=== PATIENT | male | born 1960 | race American Indian/Alaskan Native ===

== ENCOUNTER 2016-08-12 00:17 | Observation (INO) | payer MEDICAID ==
[2016-08-12 00:20] VITALS: BMI 30.8
[2016-08-12 00:34] VITALS: RESP 16
--- NOTE | 2016-08-12 00:47 | ED PDOC ---
Arrival/HPI - General Historian: Patient EM Caveat: Intoxicated - History of Present Illness Symptom Onset: Gradual Symptom Course: Improving <Leticia Liu - Last Filed: 08/12/16 03:50> <Chavez Davis - Last Filed: 08/12/16 07:01> - General Chief Complaint: Alcohol Ingestion Time Seen by Provider: 08/12/16 00:23 - History of Present Illness Narrative History of Present Illness (Text): 08/12/16 00:38 55 M with PMHx of HTN, HIV, and substance abuse presents to the [facility] ED via EMS for EtOH intoxication. Pt was awake and answering questions. He stated "I drank a lot". Pt has a history of multiple visits to the [facility] ED for similar episodes of intoxication. Pt denied any trauma, and denied any acute complaints at this time. Pt denied suicidal or homicidal ideation. He stated he did not take his home HTN medications today. He denied fever, chills, sob, chest pains, abdominal pains, n/v/d/c or urinary symptoms. (Leticia Liu) Past Medical History - Infectious Disease Hx of Infectious Diseases: None - Tetanus Immunization Tetanus Immunization: Unknown - Cardiac Hx Hypertension: Yes - Pulmonary Hx Tuberculosis: No - Neurological HX Cerebrovascular Accident: No - Hematological/Oncological Hx Cancer: No - Musculoskeletal/Rheumatological Hx Falls: No - Psychiatric Hx Substance Use: No - Anesthesia Hx Anesthesia: No - Suicidal Assessment Feels Threatened In Home Enviroment: No <Leticia Liu - Last Filed: 08/12/16 03:50> Family/Social History Family/Social History: No Known Family HX Smoking Status: Current Some Days Smoker Hx Alcohol Use: Yes Hx Substance Use: No <Leticia Liu - Last Filed: 08/12/16 03:50> Allergies/Home Meds <Leticia Liu - Last Filed: 08/12/16 03:50> <Chavez Davis - Last Filed: 08/12/16 07:01> Allergies/Adverse Reactions: Allergies No Known Allergies Allergy (Verified 02/01/16 21:52) Home Medications: Home Meds Medication Instructions Recorded Confirmed Emtricitab/Rilpivirine/Tenofov 1 each PO DAILY 11/24/15 08/12/16 [Complera Tablet] Metoprolol Succinate 50 mg PO DAILY 11/24/15 08/12/16 Valsartan/Hydrochlorothiazide 1 tab PO DAILY 11/24/15 08/12/16 [Valsartan and Hydrochlorothiazide 25 mg-160 M] Hydralazine HCl [Hydralazine HCl] 100 mg PO Q12H 08/12/16 08/12/16 Review of Systems - Review of Systems Systems not reviewed;Unavailable: Intoxicated <Leticia Liu - Last Filed: 08/12/16 03:50> Physical Exam - Physical Exam Physical Exam Limitations: Intoxication Vital Signs Reviewed: Yes Temperature: Afebrile Blood Pressure: Normal Pulse: Regular Respiratory Rate: Normal Appearance: Positive for: Non-Toxic, Comfortable Pain Distress: None - Systems Exam Head: Present: Atraumatic, Normocephalic Pupils: Present: PERRL Extroacular Muscles: Present: EOMI Conjunctiva: Present: Normal Mouth: Present: Moist Mucous Membranes Neck: Present: Normal Range of Motion Respiratory/Chest: Present: Clear to Auscultation, Good Air Exchange. No: Respiratory Distress, Accessory Muscle Use Cardiovascular: Present: Regular Rate and Rhythm, Normal S1, S2. No: Murmurs Abdomen: Present: Normal Bowel Sounds. No: Tenderness, Distention, Peritoneal Signs Neurological: Present: GCS=15, CN II-XII Intact Skin: Present: Warm, Dry, Normal Color. No: Rashes Psychiatric: Present: Intoxicated. No: Suicidal Ideation, Homicidal Ideation <Leticia Liu - Last Filed: 08/12/16 03:50> Vital Signs Temp Pulse Resp BP Pulse Ox 08/12/16 06:21 97.3 F L 87 16 127/75 95 08/12/16 05:13 83 16 144/70 100 08/12/16 04:23 97.5 F L 86 16 145/75 97 08/12/16 00:33 97.8 F 76 16 153/90 H 97 Medical Decision Making <Leticia Liu - Last Filed: 08/12/16 03:50> <Chavez Davis - Last Filed: 08/12/16 07:01> ED Course and Treatment: 08/12/16 00:49 55 M with PMHx of HTN and HIV presents to [facility] ED via EMS for alcohol intoxication. No signs of trauma. Will admit to ED obs and monitor for agitation. Haldol and ativan prn agitation. Fingerstick for nutritional status. (Leticia Liu) 08/12/16 01:28 In agreement with resident note, which includes further HPI details. Patient was seen and evaluated with resident, came up with plan and treatment together. On exam, patient is alert, awake, and oriented to himself. He states he had too much to drink. Patient denies any trauma. Differential Diagnosis included but are not limited to: ETOH intoxication During Emergency room stay, patient became agitated and angry and threatened staff. Attempted to calm patient down. Patient was sedated with 2mg Ativan and 5mg Haldol for his safety and ours. 08/12/16 07:00 On reevaluation, patient is AAOx3. No ataxia. No slurred speech. Denies trauma. No SI or HI. Patient will be discharged home. Advised him to follow up with a detox center. (Chavez Davis) - Medication Orders Current Medication Orders: Discontinued Medications Haloperidol Lactate (Haldol) 5 mg IM STAT STA Stop: 08/12/16 00:41 Last Admin: 08/12/16 00:50 Dose: 5 MG Behavioural Document 08/12/16 00:50 FJA (Rec: 08/12/16 00:50 FJA [id number]) Maintenance Maintenance Dose Yes Nonmedicinal Nonmedicinal Interventions Therapeutic Communication Activity Behavior Behavior for Medication: Biting/Hitting/Throwing/ Kicking Continuous pacing/restlessness IM Administration Charges Document 08/12/16 00:50 FJA (Rec: 08/12/16 00:50 FJA [id number]) Injection Site MAR Injection Site Left Deltoid Charges for Administration # of IM Administrations 1 Haloperidol Lactate (Haldol) Confirm Administered Dose 5 mg .ROUTE .STK-MED ONE Stop: 08/12/16 00:47 Last Admin: 08/12/16 00:51 Dose: Lorazepam (Ativan) 2 mg IM ONCE ONE Stop: 08/12/16 00:41 Last Admin: 08/12/16 00:49 Dose: 2 MG Behavioural Document 08/12/16 00:49 FJA (Rec: 08/12/16 00:50 FJA [id number]) Maintenance Maintenance Dose Yes Nonmedicinal Nonmedicinal Interventions Therapeutic Communication Behavior Behavior for Medication: Biting/Hitting/Throwing/ Kicking Continuous pacing/restlessness IM Administration Charges Document 08/12/16 00:49 FJA (Rec: 08/12/16 00:50 FJA [id number]) Injection Site MAR Injection Site Left Deltoid Charges for Administration # of IM Administrations 1 Lorazepam (Ativan) Confirm Administered Dose 2 mg .ROUTE .STK-MED ONE Stop: 08/12/16 00:46 Last Admin: 08/12/16 00:50 Dose: Disposition/Present on Arrival - Present on Arrival Any Indicators Present on Arrival: No History of DVT/PE: No History of Uncontrolled Diabetes: No Urinary Catheter: No History of Decub. Ulcer: No History Surgical Site Infection Following: None - Disposition Have Diagnosis and Disposition been Completed?: Yes Disposition Time: 01:00 Patient Plan: Observation <Leticia Liu - Last Filed: 08/12/16 03:50> - Present on Arrival Any Indicators Present on Arrival: No - Disposition Have Diagnosis and Disposition been Completed?: Yes Disposition Time: 07:01 Patient Plan: Discharge <Chavez Davis - Last Filed: 08/12/16 07:01> - Disposition Diagnosis: Alcohol intoxication Disposition: HOME/ ROUTINE Condition: IMPROVED
[2016-08-12 06:22] VITALS: BP 127/75; PULSE 87; TEMP 97.3; O2SAT 95
== END 2016-08-12 06:46 | disposition home or self-care (01) ==
LOC: ED 00:17 → EROBSV 00:36
PROVIDERS: ADMIT Emergency Medicine; ATTEND Emergency Medicine
DX: F10.129 Alcohol abuse with intoxication, unspecified (principal)
CPT/HCPCS: 96372; 99283; G0378; J1630; J2060